=== PATIENT | male | born 1965 | race Caucasian/White ===

== ENCOUNTER 2017-06-30 11:58 | Emergency (ER) | payer SELFPAY ==
[~2017-06-30] VITALS: Ht 185.4 cm; Wt 120.0 kg
[~2017-06-30 11:58] MED LIST: METH5TAB PO; ZOFR4TAB3 SL
[2017-06-30 13:26] VITALS: BP 137/77; PULSE 108; RESP 18; TEMP 98.5; O2SAT 99
== END 2017-06-30 22:59 | disposition left against medical advice (07) ==
LOC: NETRI 11:58
DX: R21 Rash and other nonspecific skin eruption (principal); Z53.21 Procedure and treatment not carried out due to patient leaving prior to being seen by health care provider
CPT/HCPCS: 99281